=== PATIENT | male | born 2000 | race Caucasian/White ===

== ENCOUNTER 2023-04-13 15:17 | Emergency (ER) | payer OTHER ==
[~2023-04-13] VITALS: Ht 170.2 cm; Wt 59.0 kg
[2023-04-13] MEDS ORDERED: ZITHROMAX500 MG PO (18:20)
[2023-04-13] MEDS ORDERED: TUSNEL LIQUID178 ML PO (18:20)
[2023-04-13] MEDS ORDERED: ZOFRAN8 MG PO (18:21)
== END 2023-04-13 18:54 | disposition home or self-care (01) ==
LOC: ER 15:17
PROVIDERS: General Practice
DX: R11.2 Nausea with vomiting, unspecified (principal); Z20.822 Contact with and (suspected) exposure to COVID-19

== ENCOUNTER 2023-09-06 09:53 | Emergency (ER) | payer OTHER ==
[~2023-09-06] VITALS: Ht 175.3 cm; Wt 59.0 kg
[~2023-09-06 09:53] MED LIST: TUSNEL LIQUID178 ML PO; ZITHROMAX500 MG PO; ZOFRAN8 MG PO
[2023-09-06 11:01] LABS: HEMATOCRIT 45.2 % (39.0-48.0); HEMOGLOBIN 15.6 g/dL (13-16.00); MEAN CELL VOLUME 85.1 fL (80.0-100.00); MEAN CORPUSCULAR HEMOGLOBIN 29.4 pg (27.00-32.0); MEAN CORPUSCULAR HGB CONC 34.6 g/dl (32.0-36.0); PLATELET COUNT 182 K/uL (150-450); RED BLOOD COUNT 5.31 M/uL (4.00-6.00); RED CELL DISTRIBUTION WIDTH 13.7 % (11.5-14.5)
[2023-09-06 11:24] LABS: CREATININE SERUM 0.83 mg/dL (0.70-1.30); GFR 116.95; POTASSIUM 3.29 mEq/L (3.5-5.1)
== END 2023-09-06 14:44 | disposition home or self-care (01) ==
LOC: ER
PROVIDERS: General Practice
DX: K52.89 Other specified noninfective gastroenteritis and colitis (principal); R19.7 Diarrhea, unspecified; Z91.018 Allergy to other foods